=== PATIENT | female | born 1960 | race Two or more races ===

== ENCOUNTER 2022-03-27 20:59 | Inpatient (IN) ==
[2022-03-27] MEDS ORDERED: MORPHINE 2 MG/1 ML SYRINGE IV STA (21:56)
[2022-03-27 21:59] LABS: Basophils % 0.3 % (0.0-0.8); Eosinophils % 0.1 % (0.00-10.9); Hemoglobin 9.3 GM/DL (12.0-16.0); Immature Granulocytes % 0.6 %; Immature Granulocytes Absolute 0.06 #; Lymphocytes # 0.4 10*3/uL (1.4-4.0); Lymphocytes % 4.3 % (21.3-54.2); Mean Platelet Volume 10.8 FL (9.6-12.0); Monocytes # 0.4 10*3/uL (0.11-0.8); Monocytes % 4.5 % (1.7-12.7); Neutrophils % 90.2 % (38.7-73.9); Platelet Count 178 T/CUMM (130-400); Red Blood Count 2.98 MC/CUMM (3.8-5.5); Red Cell Distribution Width 13.7 % (9.3-17.3); White Blood Count 9.7 T/CUMM (4-12)
[2022-03-27 22:10] LABS: Alanine Aminotransferase 20 U/L (13-56); Alkaline Phosphatase 88 U/L (45-117); Aspartate Amino Transferase 9 U/L (0-37); Bilirubin,Total < 0.39 MG/DL (0.20-1.00); Blood Urea Nitrogen 54 MG/DL (7-18); Calcium 8.9 MG/DL (8.5-10.1); Carbon Dioxide 17 MMOL/L (21-32); Chloride 119 MMOL/L (98-107); Glucose 129 MG/DL (74-106); Osmolality,Calculated 302.8 MOS/KG (273-304); Potassium 4.8 MMOL/L (3.5-5.1); Sodium 144 MMOL/L (136-145)
[2022-03-27] MEDS ORDERED: ONDANSETRON 4 MG/2 ML VIAL IV PRN (22:15)
[2022-03-27] MEDS ORDERED: DEXTROSE 10% 250 ML BAG IV PRN (22:15)
[2022-03-27] MEDS ORDERED: GLUCAGON 1 MG VIAL IM PRN (22:15)
[2022-03-27 22:21] LABS: Lymphocytes 3 % (20-55); Platelet Estimate Adequate; Total Cells Counted 100
[2022-03-27 22:23] LABS: Macrocytosis Slight
[2022-03-28] MEDS ORDERED: MORPHINE 2 MG/1 ML SYRINGE IV PRN ×3 (04:33→12:09)
[2022-03-28 06:01] LABS: % Iron Saturation 9.6 % (18-50); Ferritin 18.7 ng/mL (8-252)
[2022-03-28 06:06] LABS: Calcium 9.4 MG/DL (8.5-10.1); Osmolality,Calculated 303.8 MOS/KG (273-304); Potassium 5.1 MMOL/L (3.5-5.1); Thyroid Stimulating Hormone 3.07 uIU/ml (0.358-3.74)
[2022-03-28 06:13] LABS: Folate 9.48 NG/ML (5.38-24.0)
[2022-03-28] MEDS ORDERED: GABAPENTIN 400 MG CAPSULE PO ONE (07:55)
[2022-03-28] MEDS ORDERED: PANTOPRAZOLE 40 MG TABLET PO ONE (07:55)
[2022-03-28] MEDS ORDERED: SCOPOLAMINE 1.5 MG PATCH TRANSDERM ONE (07:55)
[2022-03-28] MEDS ORDERED: DIAZEPAM 5 MG TABLET PO ONE (07:55)
[2022-03-28] MEDS ORDERED: ceFAZolin 2,000 MG/50 ML DUPLEX IV ONE (08:00)
[2022-03-28] MEDS ORDERED: fentaNYL 100 MCG/2 ML VIAL ONE ×2 (08:14→10:50)
[2022-03-28] MEDS ORDERED: propofoL 200 MG/20 ML VIAL IV ONE (08:14)
[2022-03-28] MEDS ORDERED: ROCURONIUM 50 MG/5 ML VIAL IV ONE (08:14)
[2022-03-28] MEDS ORDERED: LIDOCAINE 2% 5 ML VIAL ONE (08:14)
[2022-03-28] MEDS ORDERED: SEVOFLURANE 1 UNIT/15 MINUTE INH ONE (08:14)
[2022-03-28] MEDS ORDERED: MIDAZOLAM 2 MG/2 ML VIAL ONE (08:14)
[2022-03-28] MEDS ORDERED: ONDANSETRON 4 MG/2 ML VIAL ONE (08:14)
[2022-03-28] MEDS ORDERED: ePHEDrine 50 MG/ML VIAL ONE (10:21)
[2022-03-28] MEDS ORDERED: LACTATED RINGERS 1,000 ML IV ONE (10:52)
[2022-03-28] MEDS ORDERED: GLYCOPYRROLATE 0.4 MG/2 ML VIAL ONE (11:37)
[2022-03-28] MEDS ORDERED: PHENYLEPHRINE 1 MG/10 ML SYRINGE IV ONE (11:43)
[2022-03-28] MEDS ORDERED: BISACODYL 10 MG SUPP RECTAL PRN (11:57)
[2022-03-28] MEDS ORDERED: LACTULOSE 20 GM/30 ML UDCUP PO PRN (11:57)
[2022-03-28] MEDS ORDERED: ACETAMINOPHEN 325 MG TABLET PO PRN (11:57)
[2022-03-28] MEDS ORDERED: MAGNESIUM HYDROXIDE SUSP 30 ML UDCUP PO PRN (11:57)
[2022-03-28] MEDS ORDERED: diphenhydrAMINE CAP 25 MG CAPSULE PO PRN (11:57)
[2022-03-28] MEDS ORDERED: PROMETHAZINE 25 MG/1 ML VIAL IM PRN (11:57)
[2022-03-28] MEDS ORDERED: ONDANSETRON 4 MG/2 ML VIAL IV PRN (12:19)
[2022-03-28] MEDS: MORPHINE 10 MG/1 ML VIAL IV PRN ×3 (12:28→12:49)
[2022-03-28] MEDS ORDERED: NALOXONE 0.4 MG/ML VIAL IV PRN (15:31)
[2022-03-28] MEDS: NALOXONE 0.4 MG/ML VIAL IV PRN ×2 (15:36→17:31)
[2022-03-28] MEDS ORDERED: SODIUM CHLORIDE 0.9% 500 ML IV ONE (16:44)
[2022-03-28] MEDS: CHOLECALCIFEROL 5,000 UNIT TABLET PO SCH ×2 (17:56→20:05)
[2022-03-28] MEDS: LACTATED RINGERS 1,000 ML IV SCH (18:05)
[2022-03-28 18:07] LABS: Arterial Base Excess iSTAT -13 MMOL/L (-2.5-2.5); Arterial Bicarbonate iSTAT 15.8 MMOL/L (20-26); Arterial O2 Saturation iSTAT 16 % (95-100); Arterial PCO2 iSTAT 51 MM HG (35-48); Arterial PO2 iSTAT 18 MM HG (80-95); Arterial Total CO2 iSTAT 17 MMO/L (23-27); Arterial pH iSTAT 7.097 (7.35-7.45)
[2022-03-28] MEDS: ceFAZolin 2,000 MG/50 ML DUPLEX IV SCH (18:45)
[2022-03-28] MEDS: SODIUM BICARBONATE 650 MG TABLET PO SCH (20:05)
[2022-03-28] MEDS: METOPROLOL SUCCINATE XL 50 MG TABLET PO SCH (20:05)
[2022-03-29] MEDS: ceFAZolin 2,000 MG/50 ML DUPLEX IV SCH ×2 (01:12→09:13)
[2022-03-29 05:03] LABS: Hematocrit 25.1 VOL% (35.7-47.0); Immature Granulocytes % 0.2 %; Immature Granulocytes Absolute 0.01 #; Lymphocytes # 0.2 10*3/uL (1.4-4.0); Lymphocytes % 3.6 % (21.3-54.2); Mean Corpuscular HGB Conc 28.7 GM/DL (32-36); Mean Corpuscular Volume 108.2 FL (87-102); Mean Platelet Volume 11.3 FL (9.6-12.0); Monocytes # 0.3 10*3/uL (0.11-0.8); Monocytes % 6.4 % (1.7-12.7); Neutrophils % 89.8 % (38.7-73.9); Red Cell Distribution Width 13.8 % (9.3-17.3)
[2022-03-29 05:04] LABS: Hemoglobin 7.2 GM/DL (12.0-16.0); Platelet Count 125 T/CUMM (130-400); Red Blood Count 2.32 MC/CUMM (3.8-5.5); White Blood Count 4.2 T/CUMM (4-12)
[2022-03-29 05:08] LABS: Calcium 8.8 MG/DL (8.5-10.1); Osmolality,Calculated 301.8 MOS/KG (273-304); Potassium 5.4 MMOL/L (3.5-5.1)
[2022-03-29 05:16] LABS: Band Neutrophils 19 % (0-10); Lymphocytes 5 % (20-55); Metamyelocytes 4 %; Total Cells Counted 100
[2022-03-29 05:17] LABS: Macrocytosis Slight
[2022-03-29 05:18] LABS: Platelet Estimate Adequate
[2022-03-29] MEDS ORDERED: SODIUM CHLORIDE 0.9% 1,000 ML IV PRN (08:54)
[2022-03-29] MEDS ORDERED: PANTOPRAZOLE 40 MG TABLET PO SCH (09:00)
[2022-03-29] MEDS: PANTOPRAZOLE 40 MG TABLET PO SCH (09:12)
[2022-03-29] MEDS: OXYBUTYNIN 5 MG TABLET PO SCH (09:12)
[2022-03-29] MEDS: SODIUM BICARBONATE 650 MG TABLET PO SCH ×2 (09:12→21:05)
[2022-03-29] MEDS: allopurinoL 100 MG TABLET PO SCH (09:13)
[2022-03-29] MEDS: METOPROLOL SUCCINATE XL 50 MG TABLET PO SCH ×2 (09:13→20:03)
[2022-03-29] MEDS: CHOLECALCIFEROL 5,000 UNIT TABLET PO SCH ×2 (09:13→21:05)
[2022-03-29] MEDS: LACTATED RINGERS 1,000 ML IV SCH (13:43)
[2022-03-29] MEDS: SODIUM CHLORIDE 23.4% CONC INJ 38.5 MEQ, SODIUM BICARB INJ 100 MEQ in STERILE WATER INJ... IV SCH (16:59)
[2022-03-29 17:37] LABS: Hematocrit 35.6 VOL% (35.7-47.0)
[2022-03-29 17:38] LABS: Hemoglobin 11.1 GM/DL (12.0-16.0)
[2022-03-30 06:18] LABS: Basophils % 0.3 % (0.0-0.8); Eosinophils # 0.2 10*3/uL (0.0-0.87); Eosinophils % 1.8 % (0.00-10.9); Hematocrit 29.7 VOL% (35.7-47.0); Hemoglobin 8.8 GM/DL (12.0-16.0); Immature Granulocytes % 1.7 %; Immature Granulocytes Absolute 0.17 #; Lymphocytes # 0.8 10*3/uL (1.4-4.0); Lymphocytes % 7.8 % (21.3-54.2); Mean Corpuscular HGB Conc 29.6 GM/DL (32-36); Mean Corpuscular Volume 102.8 FL (87-102); Mean Platelet Volume 11.2 FL (9.6-12.0); Monocytes # 0.6 10*3/uL (0.11-0.8); Monocytes % 5.7 % (1.7-12.7); NRBC # 0.02 10*3/uL; Neutrophils % 82.7 % (38.7-73.9); Platelet Count 134 T/CUMM (130-400); Red Blood Count 2.89 MC/CUMM (3.8-5.5); White Blood Count 10.1 T/CUMM (4-12)
[2022-03-30 06:51] LABS: Band Neutrophils 6 % (0-10); Lymphocytes 10 % (20-55); Macrocytosis Slight; Polychromasia Slight; Total Cells Counted 100
[2022-03-30 06:52] LABS: Ovalocytes Slight; Platelet Estimate Adequate
[2022-03-30] MEDS: SODIUM BICARBONATE 650 MG TABLET PO SCH ×2 (09:45→21:11)
[2022-03-30] MEDS: PANTOPRAZOLE 40 MG TABLET PO SCH (09:45)
[2022-03-30] MEDS: OXYBUTYNIN 5 MG TABLET PO SCH (09:45)
[2022-03-30] MEDS: CHOLECALCIFEROL 5,000 UNIT TABLET PO SCH ×2 (09:45→21:11)
[2022-03-30] MEDS: allopurinoL 100 MG TABLET PO SCH (09:46)
[2022-03-30] MEDS: METOPROLOL SUCCINATE XL 50 MG TABLET PO SCH (09:46)
[2022-03-30 09:51] LABS: Osmolality,Calculated 288.1 MOS/KG (273-304); Potassium 5.5 MMOL/L (3.5-5.1)
[2022-03-30] MEDS ORDERED: SODIUM POLYSTYRENE SULFATE 15 GM/60 ML BOTTLE PO ONE (16:50)
[2022-03-30] MEDS: SODIUM CHLORIDE 23.4% CONC INJ 38.5 MEQ, SODIUM BICARB INJ 100 MEQ in STERILE WATER INJ... IV SCH (18:42)
[2022-03-31 04:46] LABS: Basophils % 0.2 % (0.0-0.8); Eosinophils # 0.2 10*3/uL (0.0-0.87); Eosinophils % 2.5 % (0.00-10.9); Hematocrit 27.1 VOL% (35.7-47.0); Hemoglobin 8.3 GM/DL (12.0-16.0); Immature Granulocytes % 2.7 %; Immature Granulocytes Absolute 0.23 #; Lymphocytes # 0.7 10*3/uL (1.4-4.0); Lymphocytes % 7.9 % (21.3-54.2); Mean Corpuscular HGB Conc 30.6 GM/DL (32-36); Mean Platelet Volume 11.3 FL (9.6-12.0); Monocytes # 0.5 10*3/uL (0.11-0.8); Monocytes % 5.6 % (1.7-12.7); NRBC # 0.02 10*3/uL; Neutrophils % 81.1 % (38.7-73.9); Platelet Count 147 T/CUMM (130-400); Red Blood Count 2.71 MC/CUMM (3.8-5.5); Red Cell Distribution Width 15.5 % (9.3-17.3); White Blood Count 8.6 T/CUMM (4-12)
[2022-03-31 05:08] LABS: Calcium 8.9 MG/DL (8.5-10.1); Osmolality,Calculated 296.7 MOS/KG (273-304); Potassium 4.4 MMOL/L (3.5-5.1)
[2022-03-31] MEDS: allopurinoL 100 MG TABLET PO SCH (09:35)
[2022-03-31] MEDS: PANTOPRAZOLE 40 MG TABLET PO SCH (09:35)
[2022-03-31] MEDS: METOPROLOL SUCCINATE XL 50 MG TABLET PO SCH (09:35)
[2022-03-31] MEDS: CHOLECALCIFEROL 5,000 UNIT TABLET PO SCH ×2 (09:36→21:27)
[2022-03-31] MEDS: OXYBUTYNIN 5 MG TABLET PO SCH (09:36)
[2022-03-31] MEDS: SODIUM BICARBONATE 650 MG TABLET PO SCH ×2 (09:38→21:26)
[2022-03-31] MEDS: SODIUM CHLORIDE 23.4% CONC INJ 38.5 MEQ, SODIUM BICARB INJ 100 MEQ in STERILE WATER INJ... IV SCH (18:24)
[2022-04-01 05:37] LABS: Basophils % 0.4 % (0.0-0.8); Eosinophils # 0.3 10*3/uL (0.0-0.87); Eosinophils % 3.7 % (0.00-10.9); Hematocrit 29.4 VOL% (35.7-47.0); Hemoglobin 9.1 GM/DL (12.0-16.0); Immature Granulocytes % 2.1 %; Immature Granulocytes Absolute 0.16 #; Lymphocytes # 0.6 10*3/uL (1.4-4.0); Mean Corpuscular Volume 99.3 FL (87-102); Mean Platelet Volume 10.7 FL (9.6-12.0); Monocytes # 0.5 10*3/uL (0.11-0.8); NRBC # 0.02 10*3/uL; Neutrophils % 79.8 % (38.7-73.9); Platelet Count 163 T/CUMM (130-400); Red Blood Count 2.96 MC/CUMM (3.8-5.5); Red Cell Distribution Width 15.2 % (9.3-17.3); White Blood Count 7.7 T/CUMM (4-12)
[2022-04-01 05:55] LABS: Calcium 9.6 MG/DL (8.5-10.1); Osmolality,Calculated 291.1 MOS/KG (273-304); Potassium 4.6 MMOL/L (3.5-5.1)
[2022-04-01] MEDS: PANTOPRAZOLE 40 MG TABLET PO SCH (09:19)
[2022-04-01] MEDS: SODIUM BICARBONATE 650 MG TABLET PO SCH ×2 (09:19→20:21)
[2022-04-01] MEDS: CHOLECALCIFEROL 5,000 UNIT TABLET PO SCH ×2 (09:19→20:21)
[2022-04-01] MEDS: METOPROLOL SUCCINATE XL 50 MG TABLET PO SCH (09:19)
[2022-04-01] MEDS: allopurinoL 100 MG TABLET PO SCH (09:19)
[2022-04-01] MEDS: OXYBUTYNIN 5 MG TABLET PO SCH (09:19)
[2022-04-01] MEDS ORDERED: MAGNESIUM SULF RIDER 4 GM/100 ML PREMIX IV PRN (15:14)
[2022-04-01] MEDS ORDERED: MAGNESIUM SULF RIDER 2 GM/50 ML PREMIX IV PRN (15:14)
[2022-04-02 05:04] LABS: Basophils % 0.4 % (0.0-0.8); Eosinophils # 0.2 10*3/uL (0.0-0.87); Eosinophils % 3.5 % (0.00-10.9); Hematocrit 27.6 VOL% (35.7-47.0); Hemoglobin 8.3 GM/DL (12.0-16.0); Immature Granulocytes % 4.3 %; Immature Granulocytes Absolute 0.21 #; Lymphocytes # 0.3 10*3/uL (1.4-4.0); Lymphocytes % 6.7 % (21.3-54.2); Mean Corpuscular HGB Conc 30.1 GM/DL (32-36); Mean Corpuscular Volume 101.5 FL (87-102); Mean Platelet Volume 10.6 FL (9.6-12.0); Monocytes # 0.5 10*3/uL (0.11-0.8); Monocytes % 9.6 % (1.7-12.7); Neutrophils % 75.5 % (38.7-73.9); Platelet Count 159 T/CUMM (130-400); Red Blood Count 2.72 MC/CUMM (3.8-5.5); Red Cell Distribution Width 15.2 % (9.3-17.3); White Blood Count 4.9 T/CUMM (4-12)
[2022-04-02 05:21] LABS: Calcium 9.8 MG/DL (8.5-10.1); Osmolality,Calculated 296.8 MOS/KG (273-304); Potassium 4.4 MMOL/L (3.5-5.1)
[2022-04-02] MEDS: SODIUM BICARBONATE 650 MG TABLET PO SCH ×2 (09:20→20:10)
[2022-04-02] MEDS: PANTOPRAZOLE 40 MG TABLET PO SCH (09:21)
[2022-04-02] MEDS: allopurinoL 100 MG TABLET PO SCH (09:21)
[2022-04-02] MEDS: CHOLECALCIFEROL 5,000 UNIT TABLET PO SCH ×2 (09:21→20:10)
[2022-04-02] MEDS: OXYBUTYNIN 5 MG TABLET PO SCH (09:21)
[2022-04-02] MEDS: METOPROLOL SUCCINATE XL 50 MG TABLET PO SCH (09:21)
[2022-04-02] MEDS ORDERED: SODIUM CHLORIDE 0.9% 500 ML IV SCH (12:00)
[2022-04-03 06:21] LABS: Calcium 9.8 MG/DL (8.5-10.1); Osmolality,Calculated 301.5 MOS/KG (273-304); Potassium 4.5 MMOL/L (3.5-5.1)
[2022-04-03] MEDS: METOPROLOL SUCCINATE XL 50 MG TABLET PO SCH (08:46)
[2022-04-03] MEDS: CHOLECALCIFEROL 5,000 UNIT TABLET PO SCH ×2 (08:46→20:11)
[2022-04-03] MEDS: SODIUM BICARBONATE 650 MG TABLET PO SCH ×2 (08:46→20:11)
[2022-04-03] MEDS: allopurinoL 100 MG TABLET PO SCH (08:46)
[2022-04-03] MEDS: PANTOPRAZOLE 40 MG TABLET PO SCH (08:46)
[2022-04-04 05:26] LABS: Basophils % 0.3 % (0.0-0.8); Eosinophils # 0.3 10*3/uL (0.0-0.87); Eosinophils % 5.3 % (0.00-10.9); Hematocrit 28.1 VOL% (35.7-47.0); Hemoglobin 8.3 GM/DL (12.0-16.0); Immature Granulocytes % 5.1 %; Lymphocytes # 0.5 10*3/uL (1.4-4.0); Lymphocytes % 9.1 % (21.3-54.2); Mean Corpuscular HGB Conc 29.5 GM/DL (32-36); Mean Corpuscular Volume 101.4 FL (87-102); Mean Platelet Volume 10.6 FL (9.6-12.0); Monocytes # 0.5 10*3/uL (0.11-0.8); Monocytes % 8.9 % (1.7-12.7); Neutrophils % 71.3 % (38.7-73.9); Platelet Count 173 T/CUMM (130-400); Red Blood Count 2.77 MC/CUMM (3.8-5.5); Red Cell Distribution Width 15.4 % (9.3-17.3); White Blood Count 5.8 T/CUMM (4-12)
[2022-04-04 05:37] LABS: Calcium 9.9 MG/DL (8.5-10.1); Osmolality,Calculated 301.4 MOS/KG (273-304); Potassium 5.1 MMOL/L (3.5-5.1)
[2022-04-04 07:12] LABS: Eosinophils 4 % (0-10); Lymphocytes 8 % (20-55); Platelet Estimate Normal; Total Cells Counted 100
[2022-04-04] MEDS ORDERED: MORPHINE 2 MG/1 ML SYRINGE IV PRN (09:27)
[2022-04-04] MEDS: SODIUM BICARBONATE 650 MG TABLET PO SCH ×2 (09:39→21:34)
[2022-04-04] MEDS: PANTOPRAZOLE 40 MG TABLET PO SCH (09:40)
[2022-04-04] MEDS: CHOLECALCIFEROL 5,000 UNIT TABLET PO SCH ×2 (09:40→21:34)
[2022-04-04] MEDS: allopurinoL 100 MG TABLET PO SCH (09:40)
[2022-04-04] MEDS: METOPROLOL SUCCINATE XL 50 MG TABLET PO SCH (09:40)
[2022-04-04] MEDS ORDERED: SODIUM POLYSTYRENE SULFATE 15 GM/60 ML BOTTLE PO STA (14:41)
[2022-04-05] MEDS: SODIUM BICARBONATE 650 MG TABLET PO SCH (09:29)
[2022-04-05] MEDS: PANTOPRAZOLE 40 MG TABLET PO SCH (09:29)
[2022-04-05] MEDS: allopurinoL 100 MG TABLET PO SCH (09:29)
[2022-04-05] MEDS: CHOLECALCIFEROL 5,000 UNIT TABLET PO SCH (09:29)
[2022-04-05] MEDS: METOPROLOL SUCCINATE XL 50 MG TABLET PO SCH (09:29)
[2022-04-05 10:04] LABS: Calcium 9.3 MG/DL (8.5-10.1); Osmolality,Calculated 301.5 MOS/KG (273-304); Potassium 4.6 MMOL/L (3.5-5.1)
[2022-04-05 11:16] VITALS: BP 119/66
[2022-04-05] MEDS ORDERED: TUBERCULIN SKIN TEST 0.1 ML SYRINGE INTRADERM STA (13:06)
== END 2022-04-05 14:07 | disposition swing bed (61) | DRG 480 ==
LOC: EDBD → EDUNIT# → N.ED 20:59 → SUATTDRO 22:15 → N.3E 22:15 → N.CC 03-28 17:50 → N.5E 03-29 17:40 → N.3E 03-29 22:41
PROVIDERS: ADMIT Internal Medicine; ATTEND Internal Medicine